=== PATIENT | male | born 1950 | race Caucasian/White ===

== ENCOUNTER 2021-07-03 20:30 | Emergency (ER) | payer OTHER, BC ==
[2021-07-03 20:41] VITALS: BP 159/78; PULSE 84; TEMP 97.9; BMI 23.0
[2021-07-03] MEDS ORDERED: KETOROLAC TROMETHAMINE 30 MG/1 ML VIAL IVPUSH ONE (21:27)
[2021-07-03] MEDS ORDERED: SODIUM CHLORIDE 1,000 ML IV STA (21:28)
[2021-07-03] MEDS ORDERED: KETOROLAC TROMETHAMINE 30 MG/1 ML VIAL ONE (21:39)
[2021-07-03 22:00] LABS: ALBUMIN 4.4 g/dl (3.4-5.0); BILIRUBIN,TOTAL 0.4 mg/dl (0.2-1); CALCIUM 9.4 mg/dl (8.5-10); CREATININE 0.7 mg/dl (0.55-1.3); MAGNESIUM 1.9 mg/dL (1.8-2.4); TOT PROT 7.2 g/dl (6.4-8.2)
[2021-07-03] MEDS ORDERED: IBUPROFEN 400 MG TABLET (FP) PO ONE (23:41)
== END 2021-07-04 00:10 | disposition home or self-care (01) ==
LOC: FER 20:30
PROC: 3E0333Z Introduction of Anti-inflammatory into Peripheral Vein, Percutaneous Approach (ICD-10-PCS; principal; 2021-07-03)
PROC: 3E0337Z Introduction of Electrolytic and Water Balance Substance into Peripheral Vein, Percutaneous Approach (ICD-10-PCS; 2021-07-03)
DX: M62.838 Other muscle spasm (principal); K11.8 Other diseases of salivary glands
CPT/HCPCS: 36415; 70450-TC; 72125-TC; 80053; 83735; 96361; 96374; 99285-25